=== PATIENT | male | born 1970 | race Caucasian/White ===

== ENCOUNTER 2016-10-16 08:01 | Emergency (ER) | payer OTHER ==
[2016-10-16 08:06] VITALS: RESP 16; TEMP 97.5
[2016-10-16] MEDS ORDERED: ASPIRIN 81 MG CHEWABLE TAB ONE (08:14)
[2016-10-16] MEDS ORDERED: ASPIRIN 81 MG CHEWABLE TAB PO ONE (08:16)
[2016-10-16 08:18] LABS: % IMMATURE GRANULYOCYTES 0.3 % (0.0-1.1); ABSOLUTE IMMATURE GRANULOCYTES 0.02 10^3/uL (0.00-0.10); ADD DIFF? NO; ADD MORPH? NO; ADD SCAN? NO; ATYPICAL LYMPHOCYTE FLAG 30 (0-99); FRAGMENT RBC FLAG 0 (0-99); HEMATOCRIT 44.8 % (40.0-51.0); HEMOGLOBIN 15.2 g/dL (13.7-17.5); LEFT SHIFT FLG 0 (0-99); LIPEMIA HEMOLYSIS FLAG 90 (0-99); MEAN CELL HEMOGLOBIN 29.5 pg (27.9-34.1); MEAN CELL HEMOGLOBIN CONCENTR. 33.9 g/dL (32.4-36.7); MEAN PLATELET VOLUME 9.2 fL (8.7-11.7); PLATELET CLUMPS FLAG 0 (0-99); PLATELET COUNT 198 10^3/uL (150-400); RED BLOOD CELL COUNT 5.15 10^6/uL (4.40-6.38); RED CELL DISTRIBUTION WIDTH 12.4 % (11.5-15.2)
--- NOTE | 2016-10-16 08:19 | CPEKG ---
Heart Rate: 60 RR Interval: 1000 P-R Interval: 164 QRSD Interval: 102 QT Interval: 452 QTC Interval: 452 P Gay: 60 QRS Gay: 69 T Wave Gay: 36 EKG Severity - NORMAL ECG - EKG Impression: SINUS RHYTHM Electronically Signed By: Tang Muro 16-Oct-2016 08:20:58
--- NOTE | 2016-10-16 08:23 | EDPHY ---
H & P Stated Complaint: CP Time Seen by Provider: 10/16/16 08:10 HPI/ROS: HPI: 46-year-old male presents to emergency department with chief concern chest pain. Reports 4/10 mid sternal chest tightness that is pleuritic and awoke him from sleep at 3:30 a.m.. May have radiated into his back. Denies fever, chills, myalgias, diaphoresis, shortness of breath, heart palpitations, racing heart, abdominal pain, nausea, vomiting, diarrhea, urinary symptoms, flank pain, rash. Has not had this pain before. No recent long car or plane travel. No calf pain or swelling. 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 Primary care provider is Dr. sultana of [place]. ROS:10 point review of systems is negative other than as stated in HPI Source: Patient Exam Limitations: No limitations - Personal History Current Tetanus/Diphtheria Vaccine: Yes - Medical/Surgical History Hx Asthma: No Hx Chronic Respiratory Disease: No Hx Diabetes: No Hx Cardiac Disease: No Hx Renal Disease: No Hx Cirrhosis: No Hx Alcoholism: No Hx HIV/AIDS: No Hx Splenectomy or Spleen Trauma: No Other PMH: Kidney stones. 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 No acute distress. Head: Normalocephalic. Atraumatic. EENT: PERRLA. EOMI. No pallor or injection. Anicteric. No nystagmus. No injection. TMs intact bilaterally with normal landmarks. No rhinnorhea, nasal passages clear. Oropharynx without redness, exudates, or lesions. Tonsils 2+ bilaterally, no exudates. Neck: Supple, nontender. No lymphadenopathy. Full range of motion. No meningismus. No carotid bruit. No JVD. Respiratory: Breathing unlabored. Breath sounds equal bilaterally and clear to auscultation. No adventitious sounds. CV: Chest with mid sternal reproducible discomfort. Heart rate regular. No murmur, distal pulses 2+ bilaterally. Brisk cap refill all extremities. GI: Abdomen soft, nontender. Bowel sounds normoactive and positive x4 quadrants. : No suprapubic tenderness. No CVA or flank tenderness. Neuro: Alert. Oriented x 3. Speech clear. Nonfocal cranial nerves throughout. Sensation intact all extremities. Skin: Skin warm, dry, intact. No rashes, abrasions, or lacerations. Skin turgor normal. Extremities: Full range of motion in all 4 extremities. Strength 5+ all extremities. No calf pain or swelling. Negative Homans bilaterally Constitutional: Initial Vital Signs Temperature (C) 36.4 C 10/16/16 08:02 Heart Rate 64 10/16/16 08:02 Respiratory Rate 16 10/16/16 08:02 Blood Pressure 121/77 H 10/16/16 08:02 O2 Sat (%) 98 10/16/16 08:02 O2 Delivery Mode Room Air Allergies/Adverse Reactions: No Known Allergies Allergy (Unverified 10/16/16 08:02) Home Medications: Medication Instructions Recorded NK [No Known Home Meds] 10/16/16 Medical Decision Making - Diagnostics Imaging: Chest, PA and Lateral History: Chest pain Findings: Prominent lung volumes and perihilar bronchial wall thickening suggesting airways disease. There is no focal infiltrate or consolidation. Heart size is relatively small consistent with the prominent lung volumes. Blunting of the left costophrenic angle laterally suggests scarring rather than a small effusion. There is no adenopathy or mass lesion. There is no pneumomediastinum or pneumothorax. There is an old mild T12 compression deformity associated with marginal osteophytes above and below the compression. There is a mild thoracic dextroscoliosis. Impression: Airways disease. Dictated By: Manny Whitfield MD ED Course/Re-evaluation: 08:46-year-old male presents to emergency department with 4/10 midsternal chest tightness that is pleuritic in nature and onset suddenly at 3:30 a.m. in the morning, awakening him from sleep. Risk factors include former smoker and stressful job. No personal or family history of cardiac disease or coagulopathy. EKG shows a sinus rhythm, rate 60, normal intervals, no axis deviation, no evidence of acute ischemia. Labs pending. Patient given 324 mg baby aspirin. Vitals are stable. He is on the monitor. 0905: Vitals remained stable. Patient's pain is 2/10 presently. CBC unremarkable. Basic metabolic panel unremarkable. Troponin is negative. Chest x -ray consistent with airway disease. We will keep the patient for 2 more hours and repeat EKG and troponin. 1115: Repeat EKG shows sinus rhythm rate 50 gait normal intervals no evidence of acute ischemia no axis deviation. Troponin pending. Patient stable. Vitals stable. 1145: Troponin negative. Have counseled patient regarding need to return to emergency department for worsening symptoms. He understands he needs to follow up with primary care on Tuesday for recheck without fail, will likely need a stress test. Differential Diagnosis: Differential diagnosis includes but is not limited to acute coronary syndrome, pulmonary embolism, asthma/reactive airway disease, anxiety, musculoskeletal strain, costochondritis - Data Points Laboratory Results: Laboratory Results 10/16/16 08:05 10/16/16 08:05 10/16/16 10/16/16 11:00 08:05 WBC 5.99 10^3/uL (3.80-9.50) RBC 5.15 10^6/uL (4.40-6.38) Hgb 15.2 g/dL (13.7-17.5) Hct 44.8 % (40.0-51.0) MCV 87.0 fL (81.5-99.8) MCH 29.5 pg (27.9-34.1) MCHC 33.9 g/dL (32.4-36.7) RDW 12.4 % (11.5-15.2) Plt Count 198 10^3/uL (150-400) MPV 9.2 fL (8.7-11.7) Neut % (Auto) 61.6 % (39.3-74.2) Lymph % (Auto) 23.2 % (15.0-45.0) [place] % (Auto) 12.0 % (4.5-13.0) Eos % (Auto) 2.7 % (0.6-7.6) Baso % (Auto) 0.2 L % (0.3-1.7) Nucleat RBC Rel Count 0.0 % (0.0-0.2) Absolute Neuts (auto) 3.69 10^3/uL (1.70-6.50) Absolute Lymphs (auto) 1.39 10^3/uL (1.00-3.00) Absolute Monos (auto) 0.72 10^3/uL (0.30-0.80) Absolute Eos (auto) 0.16 10^3/uL (0.03-0.40) Absolute Basos (auto) 0.01 L 10^3/uL (0.02-0.10) Absolute Nucleated RBC 0.00 10^3/uL (0-0.01) Immature Gran % 0.3 % (0.0-1.1) Immature Gran # 0.02 10^3/uL (0.00-0.10) Sodium 142 mEq/L (134-144) Potassium 4.4 mEq/L (3.5-5.2) Chloride 104 mEq/L (97-110) Carbon Dioxide 30 mEq/l (22-31) Anion Gap 8 mEq/L (8-16) BUN 16 mg/dL (7-23) Creatinine 0.9 mg/dL (0.7-1.3) Estimated GFR > 60 Glucose 94 mg/dL (70-100) Calcium 9.2 mg/dL (8.5-10.4) Troponin I < 0.012 ng/mL < 0.012 ng/mL (0-0.034) (0-0.034) Medications Given: Discontinued Medications Aspirin (Aspirin) 324 mg PO EDNOW ONE Stop: 10/16/16 08:17 Last Admin: 10/16/16 08:17 Dose: 324 mg Sodium Chloride (Ns) 1,000 mls @ 0 mls/hr IV ONCE ONE PRN Reason: Wide Open Stop: 10/16/16 10:09 Last Admin: 10/16/16 10:15 Dose: 1,000 mls Departure - Departure Clinical Impression: Chest pain Condition: Good Instructions: Chest Pain (ED) Additional Instructions: Plan: Follow up with primary care at [place] on Tuesday for recheck without fail--When you call to schedule appointment, please let the office know you are an "ER follow up" appointment" For worsening symptoms or change of symptoms that is concerning return promptly for recheck Referrals: IN STATE,. [Unknown] - As per Instructions
[2016-10-16 08:35] LABS: ANION GAP 8 mEq/L (8-16); CALCIUM 9.2 mg/dL (8.5-10.4); CARBON DIOXIDE 30 mEq/l (22-31); CHLORIDE 104 mEq/L (97-110); CREATININE 0.9 mg/dL (0.7-1.3); GLOMERULAR FILTRATION RATE > 60; GLUCOSE 94 mg/dL (70-100); POTASSIUM 4.4 mEq/L (3.5-5.2); SODIUM 142 mEq/L (134-144)
[2016-10-16 08:47] LABS: TROPONIN I < 0.012 ng/mL (0-0.034)
--- NOTE | 2016-10-16 09:03 | DX ---
Chest, PA and Lateral History: Chest pain Findings: Prominent lung volumes and perihilar bronchial wall thickening suggesting airways disease. There is no focal infiltrate or consolidation. Heart size is relatively small consistent with the pro minent lung volumes. Blunting of the left costophrenic angle laterally suggests scarring rather than a small effusion. There is no adenopathy or mass lesion. There is no pneumomediastinum or pneumothora x. There is an old mild T12 compression deformity associated with marginal osteophytes above and belo w the compression. There is a mild thoracic dextroscoliosis. Impression: Airways disease.
[2016-10-16] MEDS ORDERED: IOPAMIDOL (ISOVUE-300) 100 ML BTL IV ONE (09:35)
[2016-10-16] MEDS ORDERED: NS 1,000 ML IV ONE (10:08)
--- NOTE | 2016-10-16 10:58 | CPEKG ---
Heart Rate: 58 RR Interval: 1034 P-R Interval: 164 QRSD Interval: 106 QT Interval: 468 QTC Interval: 460 P [place]: 56 QRS [place]: 62 T Wave [place]: 36 EKG Severity - NORMAL ECG - EKG Impression: SINUS RHYTHM Electronically Signed By: Tang Muro 16-Oct-2016 11:25:33
[2016-10-16 12:09] VITALS: BP 98/67; PULSE 68; O2SAT 97
== END 2016-10-16 12:08 | disposition home or self-care (01) ==
DX: R07.2 Precordial pain (principal); J45.909 Unspecified asthma, uncomplicated; Z87.891 Personal history of nicotine dependence
CPT/HCPCS: Q9967

== ENCOUNTER 2017-02-05 10:59 | Emergency (ER) | payer OTHER ==
[2017-02-05 11:07] VITALS: BP 125/84; PULSE 69; RESP 15; TEMP 98.5; O2SAT 96
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
== END 2017-02-05 12:31 | disposition home or self-care (01) ==
DX: S69.91XA Unspecified injury of right wrist, hand and finger(s), initial encounter (principal); Z87.891 Personal history of nicotine dependence; V18.2XXA Unspecified pedal cyclist injured in noncollision transport accident in nontraffic accident, initial encounter
CPT/HCPCS: L3807